=== PATIENT | male | born 1945 | race Caucasian/White ===

== ENCOUNTER 2016-08-16 07:30 | Outpatient (RCR) | payer OTHER | END 2016-08-24 | LOC: M CR 07:30 | PROVIDERS: ATTEND Internal Medicine Cardiovascular Disease | DX: Z51.89 Encounter for other specified aftercare (principal); I25.728 Atherosclerosis of autologous artery coronary artery bypass graft(s) with other forms of angina pectoris; Z95.1 Presence of aortocoronary bypass graft ==

== ENCOUNTER 2016-08-27 09:28 | Outpatient (RCR) | payer OTHER | END 2016-09-23 | LOC: M CR 09:28 | PROVIDERS: ATTEND Internal Medicine Cardiovascular Disease | DX: Z51.89 Encounter for other specified aftercare (principal); I25.728 Atherosclerosis of autologous artery coronary artery bypass graft(s) with other forms of angina pectoris; Z95.1 Presence of aortocoronary bypass graft ==

== ENCOUNTER 2016-10-26 21:29 | Emergency (ER) | payer OTHER ==
[~2016-10-26] VITALS: Ht 180.3 cm; Wt 99.8 kg
[2016-10-26] MEDS ORDERED: CENT1TAB PO (21:54)
[2016-10-26] MEDS ORDERED: METO-346 PO (21:54)
[2016-10-26] MEDS ORDERED: FOLI1TAB2 PO (21:54)
[2016-10-26] MEDS ORDERED: ALBU17IN PO (21:54)
[2016-10-26] MEDS ORDERED: ASPI1TAB PO (21:54)
[2016-10-26] MEDS ORDERED: ATOR40TA PO (21:54)
[2016-10-26] MEDS ORDERED: DULE200A PO (21:54)
[2016-10-26] MEDS ORDERED: NITR0.4S14 PO (21:54)
[2016-10-26] MEDS ORDERED: FURO20TA2 PO (21:54)
[2016-10-26] MEDS ORDERED: NEXI40CA PO (21:54)
[2016-10-26 22:52] LABS: ALBUMIN 3.3 GM/DL (3.2-5.2); ALKALINE PHOSPHATASE 111 U/L (45-117); ALT/SGPT 28 U/L (12-78); ANION GAP 7 MEQ/L (8-16); AST/SGOT 17 U/L (15-37); BILIRUBIN,DIRECT 0.1 MG/DL (0.0-0.2); BILIRUBIN,TOTAL 0.3 MG/DL (0.2-1.0); BLOOD UREA NITROGEN 19 MG/DL (7-18); CALCIUM LEVEL 8.8 MG/DL (8.8-10.2); CARBON DIOXIDE LEVEL 29 MEQ/L (21-32); CHLORIDE LEVEL 105 MEQ/L (98-107); CREATININE FOR GFR 0.73 MG/DL (0.70-1.30); GLOMERULAR FILTRATION RATE > 60.0 (>49); GLUCOSE, FASTING 109 MG/DL (80-110); POTASSIUM SERUM 3.8 MEQ/L (3.5-5.1); SODIUM LEVEL 141 MEQ/L (136-145); TOTAL PROTEIN 6.6 GM/DL (6.4-8.2)
[2016-10-26 22:54] LABS: BASO % 0.5 % (0.0-1.0); EOS # 0.1 K/mm3 (0.0-0.50); EOS % 1.4 % (0.0-3.0); LARGE UNSTAINED CELL # 0.2 K/mm3 (0.0-0.4); LARGE UNSTAINED CELL % 2.5 % (0.0-4.0); LYMPH # 1.8 K/mm3 (1.5-4.5); LYMPH % 22.8 % (24.0-44.0); MEAN CORPUSCULAR HEMOGLOBIN 26.8 pg (27.0-33.0); MEAN CORPUSCULAR HGB CONC 33.2 g/dl (32.0-36.5); MEAN CORPUSCULAR VOLUME 80.8 fl (80.0-96.0); MONO # 0.5 K/mm3 (0.0-0.8); MONO % 6.2 % (0.0-5.0); NEUTROPHILS # 5.3 K/mm3 (1.8-7.7); NEUTROPHILS % 66.6 % (36.0-66.0); PLATELET COUNT, AUTOMATED 309 k/mm3 (150-450); RED CELL DISTRIBUTION WIDTH 16.3 % (11.5-14.5); WHITE BLOOD COUNT 7.9 K/mm3 (4.0-10.0)
--- NOTE | 2016-10-26 23:00 | REPUSA ---
CT of the head Clinical history: arm weakness. Technique: Multiple axial CT images were obtained through the head without administration of contrast . Comparison: None. Findings: The ventricles and sulci are symmetric bilaterally. There is no evidence of acute hemorrhag e or infarct. There is no midline shift, mass effect, or extra-axial fluid collection. The osseous st ructures are unremarkable. The visualized paranasal sinuses and mastoid air cells are clear. Impression: Negative study.
--- NOTE | 2016-10-26 23:10 | REPUSA ---
CT of the cervical spine Clinical history: tender. Technique: Multiple axial CT images were obtained through the cervical spine without administration o f contrast. Coronal and sagittal 3-D reconstructed images were also obtained. Comparison: None. Findings: The cervical vertebral bodies are in satisfactory positioning and alignment. No fractures or dislocat ions are demonstrated. The odontoid process is intact. Intervertebral disc spaces are mildly narrowe d at C5/C6 and C6/C7. There is a small disc osteophyte complex at C5/C6. There is no evidence of face t subluxation. The neural foramen appear grossly patent. The cervical cranial junction is intact. The cervical spinal canal demonstrates normal caliber and contour without evidence of spinal stenosis. T he surrounding soft tissues are within normal limits. Impression: No acute fracture or traumatic injury. Mild degenerative disc disease at C5/C6 and C6/C7 as described.
[2016-10-26 23:30] VITALS: BP 139/74
[2016-10-26 23:51] VITALS: O2SAT 94
--- NOTE | 2016-10-27 07:34 | ECGEPIP ---
Stationary ECG Study [facility] - ED Test Date: 2016-10-26 Pat Name: DEMOND SPARROW Department: Room: - Gender: M [employer]: AJ : 1945 Requested By: DONTE CARLSON Order Number: [id number] Reading MD: Tammy Whatley Measurements Intervals [place] Rate: 73 P: 110 OK: 231 QRS: 165 QRSD: 98 T: 129 QT: 400 QTc: 443 Interpretive Statements SINUS RHYTHM WITH FIRST DEGREE AV BLOCK WITH OCCASIONAL VENTRICULAR PREMATURE COMPLEXES ARM LEADS REVERSED Electronically Signed On 10-27-2016 7:34:43 EDT by Tammy Whatley
--- NOTE | 2016-10-27 07:52 | REP ---
Chest two views HISTORY: Chest pain Comparison: 07/25/2015 linear densities are present in the lower lobes consistent with scarring. The heart is upper limits of normal in size. The pulmonary vasculature is normal in appearance. The bony structure is intact. Impression bibasilar scarring The lungs are clear. The heart is normal in size. The pulmonary vasculature is normal in appearance. The bony structure is intact. IMPRESSION: No acute disease. Signed by Ramiro Rivera MD 10/27/2016 07:42 A
== END 2016-10-27 00:05 | disposition home or self-care (01) ==
LOC: M ED 22:18
DX: R53.1 Weakness (principal); Z95.1 Presence of aortocoronary bypass graft; J44.9 Chronic obstructive pulmonary disease, unspecified; I25.10 Atherosclerotic heart disease of native coronary artery without angina pectoris; I10 Essential (primary) hypertension

== ENCOUNTER 2017-07-24 06:51 | Day surgery (SDC) | payer OTHER ==
[~2017-07-24 06:51] MED LIST: ACETAMINOPHEN 325 MG TAB PO
[2017-07-24] MEDS ORDERED: fentaNYL 100 MCG/2 ML INJECTION (J3010) As Ordered (06:53)
[2017-07-24] MEDS ORDERED: MIDAZOLAM INJ 2 MG/2 ML VIAL (J2250) As Ordered (06:53)
[2017-07-24] MEDS: LIDOCAINE 3.5 % 1ML OPHTH TOPICAL GEL OU (07:00)
[2017-07-24] MEDS: OFLOXACIN 0.3 % (OCUFLOX) OPTH SOL 5ML OD (07:00)
[2017-07-24] MEDS: CYCLOPENTOLATE 2% OPHTH SOLN 2ML BTL OD (07:00)
[2017-07-24] MEDS ORDERED: PHENYLEPHRINE HCL 10 % OPHTH. SOL 5ML OD (07:00)
[2017-07-24] MEDS: TROPICAMIDE 1% OPHTH SOLN 2ML OD (07:00)
[2017-07-24] MEDS: PHENYLEPHRINE 2.5% OPHTH SOL 2ML OD (07:00)
[2017-07-24] MEDS ORDERED: PROPARACAINE 0.5% OPHTH SOL 15ML OD (07:01)
[2017-07-24] MEDS: BSS with VANC/TOB/EPI for EYE CASES IR (09:23)
[2017-07-24] MEDS: ACETYLCHOLINE OPHTH SOLN 1% 2ML (MIOCHOL-E) As Ordered (09:24)
[2017-07-24] MEDS: POVIDONE-IODINE 5% OPHTH PREP SOL 30ML As Ordered (09:26)
[2017-07-24] MEDS: TRIAMCINOLONE PRES FR 40 MG/ML 1ML(TRIESENCE)(OR EYE ONLY)(J3300 PER 1MG) As Ordered (09:26)
[2017-07-24] MEDS: LIDOCAINE 1% SDV 5 ML VIAL As Ordered (09:26)
[2017-07-24] MEDS: MOXIFLOXACIN IN BSS 0.25MG/0.25ML INTRACAMERAL INJ (OR EYE ONLY)(J2280) As Ordered (09:26)
[2017-07-24] MEDS: HEALON DUET (HEALON 10MG/ML 0.55ML & HEALON ENDOCOAT 30MG/ML 0.85ML) As Ordered (09:27)
[2017-07-24] MEDS ORDERED: AcetaZOLAMIDE 500 MG ER CAP As Ordered (09:59)
[2017-07-24] MEDS: AcetaZOLAMIDE 500 MG ER CAP PO (10:15)
[2017-07-24] MEDS ORDERED: KETOROLAC 0.5% OPHTH SOLN OD (10:30)
[2017-07-24] MEDS ORDERED: TRIMETHOBENZAMIDE 300 MG CAP PO (10:30)
== END 2017-07-24 10:22 | disposition home or self-care (01) ==
LOC: M SDC 06:51
DX: H26.9 Unspecified cataract (principal); I25.10 Atherosclerotic heart disease of native coronary artery without angina pectoris; I10 Essential (primary) hypertension; E78.00 Pure hypercholesterolemia, unspecified; R29.898 Other symptoms and signs involving the musculoskeletal system; M12.9 Arthropathy, unspecified; J45.909 Unspecified asthma, uncomplicated; J44.9 Chronic obstructive pulmonary disease, unspecified; K21.9 Gastro-esophageal reflux disease without esophagitis; Z79.899 Other long term (current) drug therapy; Z79.82 Long term (current) use of aspirin; Z87.891 Personal history of nicotine dependence
CPT/HCPCS: 66984

== ENCOUNTER 2017-08-07 16:30 | Emergency (ER) | payer OTHER ==
[2017-08-07 17:45] LABS: BASO # 0.1 10^3/uL (0.0-0.2); BASO % 0.8 % (0.0-1.0); EOS # 0.1 10^3/uL (0.0-0.50); EOS % 0.9 % (0.0-3.0); HEMATOCRIT 38.7 % (42.0-52.0); HEMOGLOBIN 12.2 g/dl (14.0-18.0); IMMATURE GRANULOCYTE % 0.3 % (0-3.0); LYMPH # 1.6 10^3/uL (1.5-4.5); LYMPH % 17.6 % (24.0-44.0); MEAN CORPUSCULAR HEMOGLOBIN 25.3 pg (27.0-33.0); MEAN CORPUSCULAR HGB CONC 31.5 g/dl (32.0-36.5); MEAN CORPUSCULAR VOLUME 80.3 fl (80.0-96.0); MONO # 0.9 10^3/uL (0.0-0.8); MONO % 9.7 % (0.0-5.0); NEUTROPHILS # 6.5 10^3/uL (1.8-7.7); NEUTROPHILS % 70.7 % (36.0-66.0); PLATELET COUNT, AUTOMATED 335 10^3/uL (150-450); RED BLOOD COUNT 4.82 10^6/uL (4.30-6.10); RED CELL DISTRIBUTION WIDTH 16.6 % (11.5-14.5); WHITE BLOOD COUNT 9.2 10^3/uL (4.0-10.0)
[2017-08-07 17:56] LABS: INR 1.04; PROTHROMBIN TIME 13.7 SECONDS (12.4-14.5)
[2017-08-07 17:57] LABS: PARTIAL THROMBOPLASTIN TIME 34.8 SECONDS (26.8-37.9)
[2017-08-07 18:06] LABS: ALBUMIN 3.6 GM/DL (3.2-5.2); ALBUMIN/GLOBULIN RATIO 0.92 (1.00-1.93); ALKALINE PHOSPHATASE 118 U/L (45-117); ALT/SGPT 24 U/L (12-78); ANION GAP 2 MEQ/L (8-16); AST/SGOT 18 U/L (7-37); BILIRUBIN,DIRECT 0.1 MG/DL (0.0-0.2); BILIRUBIN,TOTAL 0.4 MG/DL (0.2-1.0); BLOOD UREA NITROGEN 16 MG/DL (7-18); CALCIUM LEVEL 8.9 MG/DL (8.8-10.2); CARBON DIOXIDE LEVEL 34 MEQ/L (21-32); CHLORIDE LEVEL 103 MEQ/L (98-107); CK-MB VALUE MASS 1.6 NG/ML (0.0-3.6); CPK CREATINE PHOSPHOKINASE 104 U/L (39-308); CREATININE FOR GFR 0.71 MG/DL (0.70-1.30); GLOMERULAR FILTRATION RATE > 60.0 (>42); GLUCOSE, FASTING 83 MG/DL (70-100); MB/CK RELATIVE INDEX 1.53 (< OR =4); POTASSIUM SERUM 4.2 MEQ/L (3.5-5.1); SODIUM LEVEL 139 MEQ/L (136-145); TOTAL PROTEIN 7.5 GM/DL (6.4-8.2); TROPONIN I < 0.02 NG/ML (< 0.10)
[2017-08-07 23:25] LABS: CK-MB VALUE MASS 1.1 NG/ML (0.0-3.6); CPK CREATINE PHOSPHOKINASE 85 U/L (39-308); MB/CK RELATIVE INDEX 1.29 (< OR =4); TROPONIN I < 0.02 NG/ML (< 0.10)
== END 2017-08-07 23:57 | disposition home or self-care (01) ==
LOC: M ED 16:30
DX: R53.1 Weakness (principal); I10 Essential (primary) hypertension; Z79.899 Other long term (current) drug therapy; Z79.82 Long term (current) use of aspirin
CPT/HCPCS: 71046

== ENCOUNTER 2017-11-19 09:31 | Day surgery (SDC) | payer OTHER ==
[~2017-11-19 09:31] MED LIST changes: +PHENYLEPHRINE HCL 10 % OPHTH. SOL 5ML OS
[2017-11-19] MEDS ORDERED: TRIMETHOBENZAMIDE 300 MG CAP PO (09:45)
[2017-11-19] MEDS: TROPICAMIDE 1% OPHTH SOLN 2ML OS (10:46)
[2017-11-19] MEDS: LIDOCAINE 3.5 % 1ML OPHTH TOPICAL GEL OU (10:46)
[2017-11-19] MEDS: OFLOXACIN 0.3 % (OCUFLOX) OPTH SOL 5ML OS (10:47)
[2017-11-19] MEDS: CYCLOPENTOLATE 2% OPHTH SOLN 2ML BTL OS (10:47)
[2017-11-19] MEDS: PHENYLEPHRINE 2.5% OPHTH SOL 2ML OS (10:47)
[2017-11-19] MEDS: POVIDONE-IODINE 5% OPHTH PREP SOL 30ML As Ordered (11:15)
[2017-11-19] MEDS: BSS with VANC/TOB/EPI for EYE CASES IR (11:18)
[2017-11-19] MEDS ORDERED: MIDAZOLAM INJ 2 MG/2 ML VIAL (J2250) As Ordered (11:20)
[2017-11-19] MEDS ORDERED: fentaNYL 100 MCG/2 ML INJECTION (J3010) As Ordered (11:20)
[2017-11-19] MEDS: MOXIFLOXACIN IN BSS 0.25MG/0.25ML INTRACAMERAL INJ (OR EYE ONLY)(J2280) As Ordered (11:22)
[2017-11-19] MEDS: HEALON DUET (HEALON 10MG/ML 0.55ML & HEALON ENDOCOAT 30MG/ML 0.85ML) As Ordered (11:22)
[2017-11-19] MEDS: TRIAMCINOLONE PRES FR 40 MG/ML 1ML(TRIESENCE)(OR EYE ONLY)(J3300 PER 1MG) As Ordered (11:22)
[2017-11-19] MEDS: LIDOCAINE 1% SDV 5 ML VIAL As Ordered (11:22)
[2017-11-19] MEDS: AcetaZOLAMIDE 500 MG ER CAP PO (11:58)
== END 2017-11-19 12:16 | disposition home or self-care (01) ==
LOC: M SDC 09:31
DX: H25.9 Unspecified age-related cataract (principal); I25.10 Atherosclerotic heart disease of native coronary artery without angina pectoris; G47.30 Sleep apnea, unspecified; Z95.1 Presence of aortocoronary bypass graft; K21.9 Gastro-esophageal reflux disease without esophagitis; F41.9 Anxiety disorder, unspecified; F32.9 Major depressive disorder, single episode, unspecified; J44.9 Chronic obstructive pulmonary disease, unspecified; Z87.891 Personal history of nicotine dependence; Z79.82 Long term (current) use of aspirin
CPT/HCPCS: 66984

== ENCOUNTER 2017-12-23 08:02 | Day surgery (SDC) | payer OTHER ==
[2017-12-23] MEDS: NS 1,000 ML IV (08:15)
[2017-12-23] MEDS ORDERED: LIDOCAINE 2% INJ 100 MG/5 ML SDV (FOR ANES.) As Ordered (09:26)
[2017-12-23] MEDS ORDERED: PROPOFOL 500 MG/50 ML VIAL As Ordered (09:26)
== END 2017-12-23 10:06 | disposition home or self-care (01) ==
LOC: M OPP 08:02
DX: Z09 Encounter for follow-up examination after completed treatment for conditions other than malignant neoplasm (principal); Z80.0 Family history of malignant neoplasm of digestive organs; K64.0 First degree hemorrhoids; D50.9 Iron deficiency anemia, unspecified; K22.8 Other specified diseases of esophagus; K44.9 Diaphragmatic hernia without obstruction or gangrene; I25.10 Atherosclerotic heart disease of native coronary artery without angina pectoris; I10 Essential (primary) hypertension; E78.5 Hyperlipidemia, unspecified; K21.9 Gastro-esophageal reflux disease without esophagitis; R12 Heartburn; Z95.1 Presence of aortocoronary bypass graft; M19.90 Unspecified osteoarthritis, unspecified site; F41.9 Anxiety disorder, unspecified; F32.9 Major depressive disorder, single episode, unspecified; J45.909 Unspecified asthma, uncomplicated; J44.9 Chronic obstructive pulmonary disease, unspecified; R06.02 Shortness of breath; G47.30 Sleep apnea, unspecified; Z87.891 Personal history of nicotine dependence; Z79.82 Long term (current) use of aspirin; Z79.899 Other long term (current) drug therapy
CPT/HCPCS: 45378

== ENCOUNTER 2018-04-28 15:54 | Emergency (ER) | payer OTHER ==
[2018-04-28 16:34] LABS: VENOUS BASE EXCESS 2.1 (-2.0-2.0); VENOUS HCO3 27.5 MEQ/L (23.0-27.0); VENOUS O2 SATURATION 81.5 % (60.0-80.0); VENOUS PARTIAL PRESSURE CO2 45.9 mmHg (38.0-50.0); VENOUS PARTIAL PRESSURE O2 46.3 mmHg (30.0-50.0); VENOUS PH 7.396 UNITS (7.330-7.430); VENOUS TOTAL CO2 28.9 MEQ/L (24.0-28.0)
[2018-04-28 16:43] LABS: BASO # 0.1 10^3/uL (0.0-0.2); BASO % 0.8 % (0.0-1.0); EOS # 0.1 10^3/uL (0.0-0.50); EOS % 1.6 % (0.0-3.0); HEMATOCRIT 37.4 % (42.0-52.0); HEMOGLOBIN 11.8 g/dl (13.5-17.5); IMMATURE GRANULOCYTE % 0.2 % (0-3.0); LYMPH # 1.6 10^3/uL (1.5-4.5); LYMPH % 18.2 % (24.0-44.0); MEAN CORPUSCULAR HEMOGLOBIN 25.2 pg (27.0-33.0); MEAN CORPUSCULAR HGB CONC 31.6 g/dl (32.0-36.5); MEAN CORPUSCULAR VOLUME 79.9 fl (80.0-96.0); MONO # 0.9 10^3/uL (0.0-0.8); MONO % 10.4 % (0.0-5.0); NEUTROPHILS # 6.2 10^3/uL (1.8-7.7); NEUTROPHILS % 68.8 % (36.0-66.0); PLATELET COUNT, AUTOMATED 291 10^3/uL (150-450); RED BLOOD COUNT 4.68 10^6/uL (4.30-6.10); RED CELL DISTRIBUTION WIDTH 16.6 % (11.5-14.5); WHITE BLOOD COUNT 8.9 10^3/uL (4.0-10.0)
[2018-04-28 16:53] LABS: PROTHROMBIN TIME 13.3 SECONDS (12.1-14.4)
[2018-04-28 17:01] LABS: LACTIC ACID SEPSIS PROTOCOL 0.9 MMOL/L (0.4-2.0)
[2018-04-28 17:06] LABS: ALBUMIN 3.3 GM/DL (3.2-5.2); ALBUMIN/GLOBULIN RATIO 0.97 (1.00-1.93); ALKALINE PHOSPHATASE 103 U/L (45-117); ALT/SGPT 20 U/L (12-78); ANION GAP 6 MEQ/L (8-16); AST/SGOT 11 U/L (7-37); BILIRUBIN,DIRECT 0.1 MG/DL (0.0-0.2); BILIRUBIN,TOTAL 0.4 MG/DL (0.2-1.0); BLOOD UREA NITROGEN 16 MG/DL (7-18); CALCIUM LEVEL 8.7 MG/DL (8.8-10.2); CARBON DIOXIDE LEVEL 31 MEQ/L (21-32); CHLORIDE LEVEL 101 MEQ/L (98-107); CPK CREATINE PHOSPHOKINASE 59 U/L (39-308); CREATININE FOR GFR 0.75 MG/DL (0.70-1.30); GLOMERULAR FILTRATION RATE > 60.0 (>42); GLUCOSE, FASTING 101 MG/DL (70-100); LIPASE 60 U/L (73-393); MB/CK RELATIVE INDEX 1.86 (< OR =4); NT-PRO BNP 172 PG/ML (<125); POTASSIUM SERUM 4.1 MEQ/L (3.5-5.1); SODIUM LEVEL 138 MEQ/L (136-145); TOTAL PROTEIN 6.7 GM/DL (6.4-8.2); TROPONIN I < 0.02 NG/ML (< 0.10)
[2018-04-28] MEDS ORDERED: ISOVUE-370 76% 100ML VIAL (Q9967) As Ordered (18:02)
== END 2018-04-28 21:06 | disposition home or self-care (01) ==
LOC: M ED 15:54
DX: R10.31 Right lower quadrant pain (principal); M54.5 Low back pain; R11.0 Nausea; I10 Essential (primary) hypertension; I25.10 Atherosclerotic heart disease of native coronary artery without angina pectoris; K21.9 Gastro-esophageal reflux disease without esophagitis; Z79.899 Other long term (current) drug therapy; Z79.82 Long term (current) use of aspirin; Z87.891 Personal history of nicotine dependence
CPT/HCPCS: Q9967

== ENCOUNTER → 2018-07-07 | Outpatient (CLI) | payer OTHER ==
[~2018-07-07] MED LIST changes: -ACETAMINOPHEN 325 MG TAB PO; +ALBU17IN PO; +ASPI1TAB PO; +ATOR40TA75 PO; +CENT1TAB PO; +DULE200A PO; +FOLI1TAB11 PO; +FURO20TA2 PO; +METO-346 PO; +NEXI40CA PO; +NITR0.4S14 PO; -PHENYLEPHRINE HCL 10 % OPHTH. SOL 5ML OS
--- NOTE | 2018-07-07 10:35 | REP ---
Chest two views HISTORY: Pneumonia Comparison: 04/28/2018 An increase in interstitial markings is present in the lower lobes consistent with chronic interstitial fibrosis. The cardiac silhouette is enlarged. The pulmonary vasculature is normal in appearance. The bony structure is intact. IMPRESSION: 1. Bibasilar chronic interstitial fibrosis. 2. Cardiomegaly. Electronically Signed by Ramiro Rivera MD 07/07/2018 10:26 A
== END ==
LOC: M SMT 09:14
PROVIDERS: ATTEND Internal Medicine Pulmonary Disease
DX: R91.8 Other nonspecific abnormal finding of lung field (principal); J84.10 Pulmonary fibrosis, unspecified; I51.7 Cardiomegaly

== ENCOUNTER → 2018-07-25 | Outpatient (CLI) | payer OTHER ==
--- NOTE | 2018-07-25 11:43 | REP ---
CT CHEST WITHOUT CONTRAST: HISTORY: Abnormal lung field findings. Comparison chest CT study April 28, 2018. Comparison chest CT January 22, [address] FINDINGS: The patient is status post median sternotomy. The median sternotomy was performed in the interval between the 2012 and 2017 prior study. There is pleuroparenchymal fibrosis along the left lower lateral chest wall, which is felt to be postoperative for post thoracotomy change. It is stable from the April 28, 2018 prior study. No other evidence of left lower lobe or lingular consolidation is seen. There are minimal emphysematous changes in the lung apices. No significant pulmonary nodule is appreciated. Incidental note is made of a healing osteoporotic wedge compression deformity involving the inferior endplate of the T8 vertebral body which displays approximately 20% loss of anterior vertebral body height. There is sclerosis and some lucency along the inferior endplate of T8. Other vertebral body heights are preserved in the thoracic spine. No bony destructive lesion is appreciated. IMPRESSION: Post median sternotomy/thoracotomy pleuroparenchymal fibrosis in the left base. Vascular calcification. Osteoporotic wedge compression fracture deformity T8 with evidence of healing. Otherwise no acute disease. Electronically Signed by Lui Sandoval MD 07/25/2018 02:41 P
== END ==
LOC: M RAD 09:12
PROVIDERS: ATTEND Internal Medicine Pulmonary Disease
DX: R91.8 Other nonspecific abnormal finding of lung field (principal); S22.060D Wedge compression fracture of T7-T8 vertebra, subsequent encounter for fracture with routine healing; X58.XXXA Exposure to other specified factors, initial encounter; Y92.9 Unspecified place or not applicable; Y93.9 Activity, unspecified; Y99.9 Unspecified external cause status

== ENCOUNTER → 2019-10-23 | Outpatient (REF) | payer OTHER ==
[~2019-10-23] MED LIST changes: -ASPI1TAB PO; +ASPI81TA26 PO
[2019-10-23 17:51] LABS: BLOOD UREA NITROGEN 21 MG/DL (7-18); CALCIUM LEVEL 8.9 MG/DL (8.8-10.2); CARBON DIOXIDE LEVEL 30 MEQ/L (21-32); CHLORIDE LEVEL 104 MEQ/L (98-107); CHOLESTEROL LEVEL 126 MG/DL (<200); CREATININE FOR GFR 0.77 MG/DL (0.70-1.30); GLOMERULAR FILTRATION RATE > 60.0 (>42); GLUCOSE, FASTING 84 MG/DL (70-100); HDL CHOLESTEROL 56 MG/DL (>40); LDL CHOLESTEROL 59 MG/DL (<100); NON-HDL-C 70 MG/DL; POTASSIUM SERUM 4.2 MEQ/L (3.5-5.1); SODIUM LEVEL 138 MEQ/L (136-145); TRIGLYCERIDES LEVEL 53 MG/DL (<150)
[2019-10-23 17:54] LABS: BASO # 0.1 10^3/uL (0.0-0.2); BASO % 1.3 % (0.0-1.0); EOS # 0.1 10^3/uL (0.0-0.5); EOS % 1.4 % (0.0-3.0); HEMATOCRIT 38.8 % (42.0-52.0); HEMOGLOBIN 12.3 g/dl (13.5-17.5); LYMPH # 1.7 10^3/uL (1.5-5.0); MEAN CORPUSCULAR HEMOGLOBIN 27.1 pg (27.0-33.0); MEAN CORPUSCULAR HGB CONC 31.7 g/dl (32.0-36.5); MEAN CORPUSCULAR VOLUME 85.5 fl (80.0-96.0); MONO # 0.9 10^3/uL (0.0-0.8); MONO % 10.2 % (0.0-5.0); NEUTROPHILS # 5.8 10^3/uL (1.5-8.5); NEUTROPHILS % 66.9 % (36.0-66.0); PLATELET COUNT, AUTOMATED 310 10^3/uL (150-450); RED BLOOD COUNT 4.54 10^6/uL (4.30-6.10); WHITE BLOOD COUNT 8.7 10^3/uL (4.0-10.0)
== END ==
LOC: M LABDRWAD 16:09
PROVIDERS: ATTEND Internal Medicine Cardiovascular Disease
DX: E78.5 Hyperlipidemia, unspecified (principal); R06.02 Shortness of breath; I48.0 Paroxysmal atrial fibrillation

== ENCOUNTER → 2020-08-01 | Outpatient (REF) | payer OTHER ==
[2020-08-01 13:23] LABS: BASO # 0.1 10^3/uL (0.0-0.2); BASO % 1.3 % (0.0-1.0); EOS # 0.1 10^3/uL (0.0-0.5); EOS % 1.6 % (0.0-3.0); HEMATOCRIT 40.4 % (42.0-52.0); HEMOGLOBIN 12.3 g/dl (13.5-17.5); LYMPH # 1.7 10^3/uL (1.5-5.0); LYMPH % 23.7 % (24.0-44.0); MEAN CORPUSCULAR HEMOGLOBIN 26.1 pg (27.0-33.0); MEAN CORPUSCULAR HGB CONC 30.4 g/dl (32.0-36.5); MEAN CORPUSCULAR VOLUME 85.8 fl (80.0-96.0); MONO # 0.7 10^3/uL (0.0-0.8); MONO % 9.8 % (2.0-8.0); NEUTROPHILS # 4.4 10^3/uL (1.5-8.5); NEUTROPHILS % 63.2 % (36.0-66.0); PLATELET COUNT, AUTOMATED 302 10^3/uL (150-450); RED BLOOD COUNT 4.71 10^6/uL (4.30-6.10)
[2020-08-01 14:04] LABS: ALBUMIN 3.6 GM/DL (3.2-5.2); ALT/SGPT 21 U/L (12-78); BILIRUBIN,DIRECT 0.2 MG/DL (0.0-0.2); BILIRUBIN,TOTAL 0.8 MG/DL (0.2-1.0); BLOOD UREA NITROGEN 16 MG/DL (7-18); CALCIUM LEVEL 9.3 MG/DL (8.8-10.2); CARBON DIOXIDE LEVEL 29 MEQ/L (21-32); CHLORIDE LEVEL 101 MEQ/L (98-107); CHOLESTEROL LEVEL 134 MG/DL (<200); CHOLESTEROL RISK RATIO 2.093 (<5); GLOMERULAR FILTRATION RATE > 60.0 (>42); GLUCOSE, FASTING 93 MG/DL (70-100); HDL CHOLESTEROL 64 MG/DL (>40); LDL CHOLESTEROL 55 MG/DL (<100); NON-HDL-C 70 MG/DL; POTASSIUM SERUM 4.3 MEQ/L (3.5-5.1); SODIUM LEVEL 136 MEQ/L (136-145); TOTAL PROTEIN 7.1 GM/DL (6.4-8.2); TRIGLYCERIDES LEVEL 76 MG/DL (<150)
== END ==
LOC: M PLALAB 12:26 → M LABDRWAD 12:26
PROVIDERS: ATTEND Internal Medicine Cardiovascular Disease
DX: I50.32 Chronic diastolic (congestive) heart failure (principal); E78.5 Hyperlipidemia, unspecified; I11.0 Hypertensive heart disease with heart failure

== ENCOUNTER → 2021-09-18 | Outpatient (CLI) | payer MEDICARE, OTHER ==
[2021-09-18 14:59] LABS: BASO # 0.1 10^3/uL (0.0-0.2); BASO % 0.9 % (0.0-1.0); EOS # 0.3 10^3/uL (0.0-0.5); EOS % 3.5 % (0.0-3.0); HEMATOCRIT 38.9 % (42.0-52.0); HEMOGLOBIN 12.2 g/dl (13.5-17.5); LYMPH # 1.7 10^3/uL (1.5-5.0); LYMPH % 18.9 % (24.0-44.0); MEAN CORPUSCULAR HEMOGLOBIN 26.6 pg (27.0-33.0); MEAN CORPUSCULAR HGB CONC 31.4 g/dl (32.0-36.5); MEAN CORPUSCULAR VOLUME 84.7 fl (80.0-96.0); MONO % 10.6 % (2.0-8.0); NEUTROPHILS # 5.9 10^3/uL (1.5-8.5); NEUTROPHILS % 65.9 % (36.0-66.0); PLATELET COUNT, AUTOMATED 266 10^3/uL (150-450); RED BLOOD COUNT 4.59 10^6/uL (4.30-6.10)
[2021-09-18 15:26] LABS: BLOOD UREA NITROGEN 16 MG/DL (7-18); CALCIUM LEVEL 9.7 MG/DL (8.8-10.2); CARBON DIOXIDE LEVEL 30 MEQ/L (21-32); CHLORIDE LEVEL 104 MEQ/L (98-107); GLOMERULAR FILTRATION RATE > 60.0 (>42); GLUCOSE, FASTING 84 MG/DL (70-100); NT-PRO BNP 303 PG/ML (<125); POTASSIUM SERUM 4.1 MEQ/L (3.5-5.1); SODIUM LEVEL 140 MEQ/L (136-145)
== END ==
LOC: M PLALAB 12:44
PROVIDERS: ATTEND Internal Medicine Cardiovascular Disease
DX: I50.32 Chronic diastolic (congestive) heart failure (principal); R06.02 Shortness of breath; I25.728 Atherosclerosis of autologous artery coronary artery bypass graft(s) with other forms of angina pectoris

== ENCOUNTER → 2021-09-18 | Outpatient (CLI) | payer MEDICARE, OTHER | LOC: M PLAIMG 12:48 | PROVIDERS: ATTEND Physician Assistant | DX: J43.2 Centrilobular emphysema (principal) ==

== ENCOUNTER → 2021-09-27 | Outpatient (CLI) | payer MEDICARE, OTHER | LOC: M RAD 09:46 | PROVIDERS: ATTEND Physician Assistant | DX: R91.8 Other nonspecific abnormal finding of lung field (principal) ==

== ENCOUNTER → 2022-01-05 | Outpatient (CLI) | payer MEDICARE, OTHER | LOC: M PLAIMG 13:08 | PROVIDERS: ATTEND Nurse Practitioner Primary Care | DX: R91.1 Solitary pulmonary nodule (principal); J44.9 Chronic obstructive pulmonary disease, unspecified ==

== ENCOUNTER → 2022-04-24 | Outpatient (CLI) | payer MEDICARE, OTHER ==
[~2022-04-24] MED LIST changes: -DULE200A PO; +MOME13HF7 PO
== END ==
LOC: M PLAIMG 12:41
PROVIDERS: ATTEND Nurse Practitioner Primary Care
DX: R91.1 Solitary pulmonary nodule (principal)

== ENCOUNTER → 2022-11-02 | Outpatient (CLI) | payer MEDICARE, OTHER ==
[~2022-11-02] MED LIST changes: +ISOVUE-300 61% 50ML VIAL ONE
== END ==
LOC: M PLAIMG 10:05
PROVIDERS: ATTEND Physician Assistant
DX: R07.9 Chest pain, unspecified (principal); R06.02 Shortness of breath
CPT/HCPCS: 71260; Q9967

== ENCOUNTER → 2023-03-05 | Outpatient (CLI) | payer MEDICARE, OTHER ==
[~2023-03-05] MED LIST changes: -ISOVUE-300 61% 50ML VIAL ONE
== END ==
LOC: M WHC 13:20
PROVIDERS: ATTEND Internal Medicine Cardiovascular Disease
DX: R22.42 Localized swelling, mass and lump, left lower limb (principal)

== ENCOUNTER 2023-07-29 07:51 | Observation (INO) | payer MEDICARE, OTHER ==
[~2023-07-29] VITALS: Ht 180.3 cm; Wt 97.2 kg
[~2023-07-29 07:51] MED LIST changes: +MOME13HF7 INH; -MOME13HF7 PO
[2023-07-29] MEDS ORDERED: ISOVUE-370 76% 100ML VIAL As Ordered ONE (08:31)
[2023-07-29 08:40] LABS: BASO # 0.1 10^3/uL (0.0-0.2); EOS # 0.1 10^3/uL (0.0-0.5); HEMATOCRIT 45.3 % (42.0-52.0); HEMOGLOBIN 14.3 g/dl (13.5-17.5); LYMPH # 1.6 10^3/uL (1.5-5.0); LYMPH % 18.1 % (24.0-44.0); MEAN CORPUSCULAR HEMOGLOBIN 26.2 pg (27.0-33.0); MEAN CORPUSCULAR HGB CONC 31.6 g/dl (32.0-36.5); MEAN CORPUSCULAR VOLUME 83.1 fl (80.0-96.0); MONO % 11.4 % (2.0-8.0); NEUTROPHILS % 67.9 % (36.0-66.0); PLATELET COUNT, AUTOMATED 313 10^3/uL (150-450); RED BLOOD COUNT 5.45 10^6/uL (4.30-6.10); WHITE BLOOD COUNT 8.9 10^3/uL (4.0-10.0)
[2023-07-29] MEDS ORDERED: CARV6.25 PO (08:41)
[2023-07-29] MEDS ORDERED: ATOR80TA59 PO (08:41)
[2023-07-29] MEDS ORDERED: SPIR-10 PO (08:41)
[2023-07-29] MEDS ORDERED: JARD1TAB PO (08:41)
[2023-07-29 08:42] LABS: INR 1.02; PARTIAL THROMBOPLASTIN TIME 28.7 SECONDS (24.8-34.2); PROTHROMBIN TIME 13.1 SECONDS (12.5-14.5)
[2023-07-29 08:59] LABS: RSV AMPLIFICATION NEGATIVE (NEGATIVE)
[2023-07-29 09:04] LABS: LIPASE 29 U/L (12-53)
[2023-07-29 09:06] LABS: ALBUMIN 3.7 G/DL (3.2-5.2); ALKALINE PHOSPHATASE 93 U/L (46-116); ALT/SGPT 30 U/L (7.0-40); AST/SGOT 37 U/L (<34); BILIRUBIN,DIRECT 0.2 MG/DL (<0.4); BILIRUBIN,TOTAL 0.7 MG/DL (0.3-1.2); BLOOD UREA NITROGEN 22 MG/DL (9-23); CALCIUM LEVEL 8.4 MG/DL (8.3-10.6); CARBON DIOXIDE LEVEL 32 MMOL/L (20-31); CHLORIDE LEVEL 100 MMOL/L (98-107); CK-MB VALUE MASS < 1.0 NG/ML (<3.6); CREATININE FOR GFR 0.63 MG/DL (0.70-1.30); GLOMERULAR FILTRATION RATE > 60.0 (>42); GLUCOSE, FASTING 109 MG/DL (74-106); MAGNESIUM LEVEL 2.1 MG/DL (1.8-2.4); POTASSIUM SERUM 4.7 MMOL/L (3.5-5.1); SODIUM LEVEL 134 MMOL/L (136-145); TOTAL PROTEIN 6.6 G/DL (5.7-8.2)
[2023-07-29 09:07] LABS: FREE T4 1.36 NG/DL (0.89-1.76)
[2023-07-29 09:08] LABS: THYROID STIMULATING HORMONE 2.171 uIU/ML (0.55-4.78)
[2023-07-29 09:15] LABS: CPK CREATINE PHOSPHOKINASE 54 U/L (46-171); MB/CK RELATIVE INDEX 1.85 (< OR =4)
[2023-07-29 09:58] LABS: CK-MB VALUE MASS < 1.0 NG/ML (<3.6)
[2023-07-29] MEDS: NS 500 ML IV ONE (09:58)
[2023-07-29 09:59] LABS: CPK CREATINE PHOSPHOKINASE 36 U/L (46-171); MB/CK RELATIVE INDEX 2.77 (< OR =4)
[2023-07-29 12:27] LABS: CK-MB VALUE MASS < 1.0 NG/ML (<3.6)
[2023-07-29 12:28] LABS: CPK CREATINE PHOSPHOKINASE 44 U/L (46-171); MB/CK RELATIVE INDEX 2.27 (< OR =4)
[2023-07-29] MEDS ORDERED: HOME MED LIST COMPLETE! XX SCH (12:50)
[2023-07-29] MEDS ORDERED: ALBU2.5V10 INH (12:50)
[2023-07-29] MEDS ORDERED: VENTAER INH (12:50)
[2023-07-29] MEDS ORDERED: ALBUTEROL 90 MCG/ACT 8GM HFA INHALER INH PRN (14:15)
[2023-07-29] MEDS ORDERED: ALBUTEROL SULFATE 2.5MG/0.5ML INH NEB SOLN INH PRN (14:15)
[2023-07-29 15:46] VITALS: O2SAT 95
[2023-07-29 15:50] VITALS: BP 173/81; TEMP 97.5
[2023-07-30] MEDS ORDERED: ASPIRIN 81MG ENTERIC TABLET PO SCH (09:00)
[2023-07-30] MEDS ORDERED: PANTOPRAZOLE 40MG TAB (PROTONIX) PO SCH (09:00)
[2023-07-30] MEDS ORDERED: SPIRONOLACTONE 25 MG TAB PO SCH (09:00)
[2023-07-30] MEDS ORDERED: FUROSEMIDE 20 MG TAB PO SCH (09:00)
[2023-07-30] MEDS ORDERED: ATORVASTATIN 20 MG TAB PO SCH (09:00)
== END 2023-07-29 16:00 | disposition left against medical advice (07) ==
LOC: EDBD 07:51 → M ED 07:51 → M ED INP 07:52
PROVIDERS: ADMIT Internal Medicine; ATTEND Internal Medicine
DX: R55 Syncope and collapse (principal); I50.9 Heart failure, unspecified; J44.9 Chronic obstructive pulmonary disease, unspecified; Z87.09 Personal history of other diseases of the respiratory system; R05.3 Chronic cough; I11.0 Hypertensive heart disease with heart failure; I25.10 Atherosclerotic heart disease of native coronary artery without angina pectoris; Z98.61 Coronary angioplasty status; Z95.1 Presence of aortocoronary bypass graft; R94.31 Abnormal electrocardiogram [ECG] [EKG]; E78.5 Hyperlipidemia, unspecified; K21.9 Gastro-esophageal reflux disease without esophagitis; R53.1 Weakness; J34.89 Other specified disorders of nose and nasal sinuses; Z79.899 Other long term (current) drug therapy; Z79.82 Long term (current) use of aspirin; Z79.51 Long term (current) use of inhaled steroids; Z79.84 Long term (current) use of oral hypoglycemic drugs; Z80.0 Family history of malignant neoplasm of digestive organs; Z87.891 Personal history of nicotine dependence; R07.9 Chest pain, unspecified
CPT/HCPCS: 71045; 80047; 80048; 80076; 82550; 82553; 83690; 83735; 83880; 84439; 84443; 84484; 85025; 85610; 85730; 87631; 93005; 93041; 93970; 94760; 99285; G0378

== ENCOUNTER → 2025-01-26 | Outpatient (CLI) | payer MEDICARE, OTHER ==
[~2025-01-26] MED LIST changes: +ALBU2.5V10 INH; +ATOR80TA59 PO; +CARV6.25 PO; +JARD1TAB PO; +SPIR-10 PO; +VENTAER INH
== END ==
LOC: M RAD 08:46
PROVIDERS: ATTEND Physician Assistant
DX: R42 Dizziness and giddiness (principal); R53.1 Weakness; Z53.9 Procedure and treatment not carried out, unspecified reason

== ENCOUNTER 2025-02-03 13:41 | Observation (INO) | payer MEDICARE, OTHER ==
[~2025-02-03] VITALS: Ht 149.9 cm; Wt 97.5 kg
[2025-02-03] MEDS ORDERED: ISOVUE-370 76% 100 ML VIAL As Ordered ONE (14:10)
[2025-02-03 14:21] LABS: BASO # 0.1 10^3/uL (0.0-0.2); BASO % 1.4 % (0.0-1.0); EOS # 0.1 10^3/uL (0.0-0.5); EOS % 1.4 % (0.0-3.0); LYMPH # 1.6 10^3/uL (1.5-5.0); LYMPH % 17.9 % (24.0-44.0); MONO # 1.0 10^3/uL (0.0-0.8); MONO % 11.6 % (2.0-8.0); NEUTROPHILS # 5.9 10^3/uL (1.5-8.5); NEUTROPHILS % 67.5 % (36.0-66.0); PLATELET COUNT, AUTOMATED 290 10^3/uL (150-450)
[2025-02-03 14:27] LABS: CK-MB VALUE MASS 2.0 NG/ML (<3.6)
[2025-02-03 14:28] LABS: CPK CREATINE PHOSPHOKINASE 88 U/L (46-171); INR 0.84; MB/CK RELATIVE INDEX 2.27 (< OR =4)
[2025-02-03 14:56] LABS: ALT/SGPT 20 U/L (7.0-40); AST/SGOT 22 U/L (<34); CALCIUM LEVEL 9.2 MG/DL (8.3-10.6); CARBON DIOXIDE LEVEL 28 MMOL/L (20-31); CHLORIDE LEVEL 98 MMOL/L (98-107); CREATININE FOR GFR 0.80 MG/DL (0.70-1.30); GLOMERULAR FILTRATION RATE > 90.0 (>42); POTASSIUM SERUM 3.8 MMOL/L (3.5-5.1); SODIUM LEVEL 138 MMOL/L (136-145)
[2025-02-03 15:38] LABS: CK-MB VALUE MASS 1.5 NG/ML (<3.6)
[2025-02-03 15:39] LABS: CPK CREATINE PHOSPHOKINASE 83.0 U/L (46-171); MB/CK RELATIVE INDEX 1.8 (< OR =4)
[2025-02-03] MEDS ORDERED: FURO40TA2 PO (16:31)
[2025-02-03] MEDS ORDERED: TREL1AER INH (16:35)
[2025-02-03] MEDS ORDERED: ENTR1TAB PO (16:35)
[2025-02-03] MEDS ORDERED: ACET-897 PO (16:35)
[2025-02-03] MEDS ORDERED: HOME MED LIST COMPLETE! XX SCH (16:40)
[2025-02-03] MEDS ORDERED: ALBUTEROL SULFATE 2.5 MG/0.5 ML INH CONCENTRATE NEB SOLN INH PRN (17:10)
[2025-02-03] MEDS ORDERED: ACETAMINOPHEN 500 MG TAB PO PRN (17:10)
[2025-02-03] MEDS ORDERED: NITROGLYCERIN 0.4 MG SUBL TABLET SL PRN (17:10)
[2025-02-03] MEDS ORDERED: ASPIRIN 325 MG TAB PO ONE (17:10)
[2025-02-03] MEDS: ASPIRIN 81 MG ENTERIC TABLET PO ONE (18:55)
[2025-02-03 19:46] LABS: ESTIMATED AVERAGE GLUCOSE 120.0 MG/DL (60-110)
[2025-02-03] MEDS: PANTOPRAZOLE 40MG TAB PO SCH (19:56)
[2025-02-03] MEDS: ATORVASTATIN 20 MG TAB PO SCH (19:56)
[2025-02-03] MEDS: ADVAIR HFA 230/21 MCG INHALER INH SCH (20:00)
[2025-02-03 22:26] VITALS: BP 137/75; TEMP 97.7; O2SAT 95
[2025-02-03] MEDS: ENTRESTO 24-26 MG TABLET (SACUBITRIL/VALSARTAN) PO SCH (23:44)
[2025-02-04 03:25] VITALS: BP 147/70; TEMP 97.9; O2SAT 90
[2025-02-04] MEDS: HEPARIN SOD 5000 UNITS/ML 1 ML VIAL/SYRINGE SC SCH (06:16)
[2025-02-04 06:24] LABS: PLATELET COUNT, AUTOMATED 268 10^3/uL (150-450)
[2025-02-04 06:48] LABS: CALCIUM LEVEL 9.2 MG/DL (8.3-10.6); CARBON DIOXIDE LEVEL 30 MMOL/L (20-31); CHLORIDE LEVEL 98 MMOL/L (98-107); CHOLESTEROL LEVEL 124.0 MG/DL (<200); CHOLESTEROL RISK RATIO 2.32 (<5); CREATININE FOR GFR 0.71 MG/DL (0.70-1.30); GLOMERULAR FILTRATION RATE > 90.0 (>42); LDL CHOLESTEROL 58.1 MG/DL (<100); NON-HDL-C 70.7 MG/DL; POTASSIUM SERUM 3.6 MMOL/L (3.5-5.1); SODIUM LEVEL 140 MMOL/L (136-145); TRIGLYCERIDES LEVEL 63.0 MG/DL (<150)
[2025-02-04] MEDS: TIOTROPIUM BROM 2.5MCG/ACTUATION 4GM INH INH SCH (07:54)
[2025-02-04 08:37] VITALS: BP 134/75; TEMP 97.9; O2SAT 90
[2025-02-04] MEDS: ASPIRIN 81 MG ENTERIC TABLET PO SCH (09:10)
[2025-02-04] MEDS: MULTIVITAMINS/MINERALS THERAP 1 TAB PO SCH (09:10)
[2025-02-04 09:12] VITALS: BP 136/74
[2025-02-04] MEDS: SPIRONOLACTONE 25 MG TAB PO SCH (09:12)
[2025-02-04] MEDS: FUROSEMIDE 40 MG TAB PO SCH (09:13)
[2025-02-04] MEDS ORDERED: TOPR25TA PO (11:28)
== END 2025-02-04 12:38 | disposition home or self-care (01) ==
LOC: EDBD 13:41 → M ED 13:41 → M ED INP 17:09 → M MSPAV 22:26
PROVIDERS: ADMIT Internal Medicine; ATTEND Internal Medicine
DX: R55 Syncope and collapse (principal); I50.9 Heart failure, unspecified; I25.10 Atherosclerotic heart disease of native coronary artery without angina pectoris; Z95.1 Presence of aortocoronary bypass graft; I44.1 Atrioventricular block, second degree; R00.1 Bradycardia, unspecified; Z95.818 Presence of other cardiac implants and grafts; I67.1 Cerebral aneurysm, nonruptured; J44.9 Chronic obstructive pulmonary disease, unspecified; K21.9 Gastro-esophageal reflux disease without esophagitis; R06.02 Shortness of breath; Z87.891 Personal history of nicotine dependence; J45.909 Unspecified asthma, uncomplicated; Z79.899 Other long term (current) drug therapy; Z79.82 Long term (current) use of aspirin; Z79.51 Long term (current) use of inhaled steroids
CPT/HCPCS: 36415; 70220; 70450; 70496; 70498; 71045; 80047; 80048; 80053; 80061; 82550; 82553; 83036; 83880; 84145; 84484; 85025; 85027; 85610; 85730; 93005; 93041; 94640; 94760; 96372; 99285; G0378; Q9967

== ENCOUNTER 2025-02-23 08:21 | Emergency (ER) | payer MEDICARE, OTHER ==
[~2025-02-23] VITALS: Ht 177.8 cm; Wt 99.5 kg
[~2025-02-23 08:21] MED LIST changes: +ACET-897 PO; +ENTR1TAB PO; +FURO40TA2 PO; +TOPR25TA PO; +TREL1AER INH
[2025-02-23 08:25] VITALS: BP 154/68; TEMP 98.2; O2SAT 97
[2025-02-23] MEDS: CARBAMIDE PEROXIDE 6.5% OTIC SOLN 15 ML AU ONE (11:34)
[2025-02-23] MEDS ORDERED: DEBR6.5S4 AU (13:26)
[2025-02-23] MEDS ORDERED: FLUT15.820 NARES (13:40)
[2025-02-23] MEDS ORDERED: ACET-683 PO (13:42)
[2025-02-23] MEDS ORDERED: METO1TAB32 PO (13:43)
[2025-02-23] MEDS ORDERED: HOME MED LIST COMPLETE! XX SCH (13:45)
== END 2025-02-23 13:42 | disposition home or self-care (01) ==
LOC: M ED 08:21
DX: H61.23 Impacted cerumen, bilateral (principal); I25.10 Atherosclerotic heart disease of native coronary artery without angina pectoris; I50.9 Heart failure, unspecified; J44.9 Chronic obstructive pulmonary disease, unspecified; K21.9 Gastro-esophageal reflux disease without esophagitis; Z95.1 Presence of aortocoronary bypass graft; F17.200 Nicotine dependence, unspecified, uncomplicated; Z86.79 Personal history of other diseases of the circulatory system; Z79.82 Long term (current) use of aspirin; Z79.899 Other long term (current) drug therapy